=== PATIENT | female | born 1935 | race African-American/Black ===

== ENCOUNTER → 2020-04-16 | Outpatient (CLI) | payer OTHER ==
[~2020-04-16] MED LIST: NORCO 5-325 TA1 EACH PO
== END ==
LOC: CAT 10:24
PROVIDERS: ATTEND Internal Medicine
DX: K57.30 Diverticulosis of large intestine without perforation or abscess without bleeding (principal); I70.0 Atherosclerosis of aorta; R91.1 Solitary pulmonary nodule; J98.4 Other disorders of lung; N18.6 End stage renal disease; J44.9 Chronic obstructive pulmonary disease, unspecified

== ENCOUNTER 2020-05-13 16:33 | Emergency (ER) | payer OTHER, BC ==
[~2020-05-13] VITALS: Ht 152.4 cm; Wt 59.9 kg
[2020-05-13] MEDS ORDERED: LOSARTAN POTAS100 MG PO (16:54)
[2020-05-13] MEDS ORDERED: ELIQUIS2.5 MG PO (16:54)
[2020-05-13] MEDS ORDERED: ASA81BEC PO (16:55)
[2020-05-13] MEDS ORDERED: CARVEDILOL25 MG PO (16:55)
[2020-05-13] MEDS ORDERED: SENNA LAXATIVE8.6 MG PO (16:55)
[2020-05-13] MEDS ORDERED: RENA-VITE TABL0.8 MG PO (16:56)
[2020-05-13] MEDS ORDERED: ONDANSETRON HCL4 M2 PO (16:56)
[2020-05-13] MEDS ORDERED: CALCIUM ACETAT667 MG PO (16:57)
[2020-05-13] MEDS ORDERED: LEVOTHYROXINE150 MCG PO (16:57)
[2020-05-13] MEDS ORDERED: ANORO ELLIPTA1 EACH INH (16:57)
[2020-05-13] MEDS ORDERED: ASPERCREME 1141.7 GM TOP (16:59)
[2020-05-13] MEDS ORDERED: OXYBUTYNIN 5 MG5 M2 PO (17:00)
[2020-05-13] MEDS ORDERED: ROXICODONE5 M2 PO ×2 (17:00)
[2020-05-13] MEDS ORDERED: REGLAN 5 MG TAB5 MG PO (17:01)
[2020-05-13] MEDS ORDERED: SORBITOL1 ML PO (17:04)
[2020-05-13] MEDS ORDERED: COLACE100 MG PO (17:46)
[2020-05-13] MEDS ORDERED: ANUSOL-HC30 GM TOP (17:46)
[2020-05-13] MEDS ORDERED: ANUSOL-HC25 MG RECTAL (17:46)
[2020-05-13 18:11] VITALS: BP 135/81
== END 2020-05-13 18:53 | disposition home or self-care (01) ==
LOC: ER 16:33
DX: K59.00 Constipation, unspecified (principal); I10 Essential (primary) hypertension; K21.9 Gastro-esophageal reflux disease without esophagitis; E11.9 Type 2 diabetes mellitus without complications; Z90.710 Acquired absence of both cervix and uterus; Z79.899 Other long term (current) drug therapy; Z79.82 Long term (current) use of aspirin; Z88.8 Allergy status to other drugs, medicaments and biological substances; Z91.018 Allergy to other foods

== ENCOUNTER 2020-05-28 12:23 | Inpatient (IN) | payer OTHER, BC ==
[~2020-05-28] VITALS: Ht 165.1 cm; Wt 66.7 kg
--- NOTE | ~2020-05-28 | HC ---
[facility] [place] [address] CONSULTATION Name: MAITE BE Room #: 211-P ADM IN M.R.#: [id number] Admission: 05/28/20 Attend Phys: Marianne Doran Discharge: Date of : 33 Report #: [id number] THIS REPORT FOR: cc: Ed Castro MD, Christopher B. MD Al-Demetrio,Jermaine De MD ~ REASON FOR CONSULTATION: End-stage renal disease. REASON FOR PRESENTATION: Abnormal lower extremity duplex ultrasound. HISTORY OF PRESENT ILLNESS: The patient has end-stage renal disease, maintained on hemodialysis every Sunday, Sunday and Sunday. She is known to have colon cancer with colon resection. She is also known to have lymphoma. She presented from the wound clinic after they found that she had an abnormal duplex. She reported to the wound clinic that she has been having typical ischemic pain. She was admitted for further evaluation and management. I was consulted to manage her end-stage renal disease. PAST MEDICAL HISTORY: 1. Atrial fibrillation. 2. Coronary artery disease. 3. Peripheral vascular disease. 4. Non-Hodgkin's lymphoma. 5. End-stage renal disease, maintained on hemodialysis. 6. Lung nodules. 7. History of colon cancer post-resections. ALLERGIES: AMLODIPINE. HOME MEDICATIONS: 1. Eliquis. 2. Carvedilol. 3. Metoclopramide. 4. Losartan. 5. Levothyroxine. FAMILY HISTORY: Significant for hypertension and diabetes mellitus. SOCIAL HISTORY: She resides at the [facility]. No drug or alcohol abuse. REVIEW OF SYSTEMS: GENERAL: No fever or chills. CARDIOVASCULAR: No chest pain or palpitation. PULMONARY: No cough or hemoptysis. GASTROINTESTINAL: No nausea or vomiting. [facility] [address] [place] [address] CONSULTATION Name: MAITE BE Room #: 211-P [facility] IN M.R.#: [id number] Admission: 05/28/20 Attend Phys: Marianne Doran Discharge: Date of : 34 Report #: [id number] MUSCULOSKELETAL: As per the history of present illness. NEUROLOGICAL: No headache, no dizziness. PHYSICAL EXAMINATION: VITAL SIGNS: Temperature 36.4, pulse rate is 91, respiratory rate is 18, blood pressure is 137/56. HEAD AND NECK: No jugular venous distention, no bruit, no thyromegaly. CHEST: No crackles. CARDIOVASCULAR: No rub detected. ABDOMEN: Soft, nontender. LOWER EXTREMITIES: Chronic peripheral vascular disease changes. LABORATORY DATA: Hemoglobin is 8.8, platelet is 88,000. Sodium is 135, BUN is 20, creatinine is 4.6, magnesium is 1.7. ASSESSMENT, IMPRESSION AND PLAN: 1. End-stage renal disease. 2. Peripheral vascular disease. 3. Atrial fibrillation. 4. Hypertension. 5. Diabetes mellitus. 6. Hypothyroidism. 7. Arrangement for the patient will be made to have her dialysis done on Sunday. 8. Resume the patient's diabetic and thyroid medications. 9. Antibiotic for her potential lower extremity cellulitis. 10. Cultures were not obtained unfortunately. 11. Cardiac evaluation. 12. Interventional Radiology had evaluated the patient and they are considering an angiogram on Sunday. By: 1 7 Jermaine Nicolas MD /nt
[~2020-05-28 12:23] MED LIST changes: -AUGMENTIN 875-1 EACH PO; -CLOPIDOGREL75 MG PO; -HUMALOG100 UNIT/1 SUBQ; -LIDOPATCH1 EACH TRANSDERM; -LIPITOR40 MG PO; -PROTONIX 20 MG20 M1 PO
[2020-05-28 15:19] LABS: ABSOLUTE NEUTROPHILS 5.1 thou/uL (1.4-8.2); BASOPHILS 0.8 % (0.0-2.0); EOSINOPHILS 2.2 % (0.0-3.0); HEMATOCRIT 33.4 % (37.0-47.0); HEMOGLOBIN 10.2 gm/dL (12.0-15.0); LYMPHOCYTES 5.8 % (24.0-44.0); MCH 26.9 pg (26.0-34.0); MCHC 30.7 g/dL (28.0-37.0); MCV 87.4 fL (80.0-100.0); MONOCYTES 11.9 % (1.0-8.0); POLYS 79.3 % (36.0-66.0); RBC 3.82 mil/uL (4.20-5.00); WBC 6.4 thou/uL (4.0-11.0)
[2020-05-28 15:21] LABS: ALBUMIN 3.4 g/dL (3.4-5.0); CALCIUM 10.1 mg/dL (8.5-10.1); CREATININE 6.7 mg/dL (0.6-1.0); MAGNESIUM 2.1 mg/dL (1.8-2.4); POTASSIUM 4.2 mmol/L (3.5-5.1); TOTAL BILIRUBIN 0.4 mg/dL (0.2-1.0); TOTAL PROTEIN 7.4 g/dL (6.4-8.2); TROPONIN-I 0.06 ng/mL (<0.06)
[2020-05-28 15:24] LABS: PLATELET COUNT 98 thou/uL (150-400)
[2020-05-28 16:01] VITALS: BP 134/63
[2020-05-28 16:45] LABS: FOLIC ACID 53.3 ng/mL (8.6-58.9)
--- NOTE | 2020-05-28 18:11 | NUR ---
PT TO THE UNIT DIRECT ADMIT D/T PT LOWER EXTREMITY DOPPLER SHOWING BLOCK, PLAN IS TO DO A ANGIOGRAM SUNDAY, PT IS ALERT AND ABLE TO STATE WANTS AND NEEDS, PT STABLE AT THIS TIME. C/O PAIN IN RIGHT FOOT, PT HAS 3 PLUS EDEMA BILATERAL AND 3 SMALL WOUNDS ON LAST THREE TOES ON THAT RIGHT FOOT. PT HAD CENTRAL LINE PLACE. PT STATES SHE HAVING CHEST PAIN THAT MOVES TO LEFT ARM AND HOW IT LAST 10 SEC AND THAT IT HAS GONE ON FOR A FEW YEARS EKG DONE ALONG WITH A TROP LEVEL. PT VS STABLE AT THIS TIME AND IS SITTING IN BED EATING DINNER CALL LIGHT IN REACH.
--- NOTE | 2020-05-28 18:27 | NUR ---
PT BLOOD GLUCOSE 47, PT IS ALERT AND ABLE TO FOLLOW COMMANDS, APPLE JUCE, AND CRACKERS WITH PB GAVE TO PT, WILL RECHECK BLOOD GLUCOSE IN 30 AND CONTINUE TO MONITOR PT CLOSELY FOR HYPOGLYCEMIA
--- NOTE | 2020-05-28 19:14 | NUR ---
[id number] PLACED FOR VANCO AND PROCEDURES. PT HAS RT ARM GRAFT. PLEASE SEE NI FOR DETAILS.
[2020-05-28 20:15] VITALS: BP 111/51
[2020-05-29 00:01] VITALS: BP 116/53
[2020-05-29 04:45] VITALS: BP 129/66
--- NOTE | 2020-05-29 07:24 | NUR ---
ASSUMED CARE OF CHANGE OF SHIFT; AOX4 WITH C/O PAIN TO NECK AND HEAD; PRN PAIN MEDS ADMINISTERED; REPOSITIONED IN BED FOR COMFORT AND HEELS OFFLOADED; HEEL PROTECTOR TO RT FOOT; PATIENT REPORTS TACTILE STIMULATION EXACERBATES PAIN TO LEFT FOOT/LEG; SR ON THE MONITOR; PATIENT AMBULATED WELL WITH ASSIST TO TOILET/ANURIC WITH DIALYSIS SCHED M/W/F; PATIENT HAS PROCEDURE SCHEDULED FOR MAY 31; WILL CONTINUE TO MONITOR AND FOLLOW POC.
[2020-05-29 11:53] VITALS: BP 123/52
[2020-05-29 15:01] VITALS: BP 114/47
--- NOTE | 2020-05-29 15:33 | NUR ---
PT HAD DIALYSIS TODAY. VSS. PRN PAIN MED GIVEN WITH PARTIAL RELIEF. AFIB ON TELE. NO CONCERNS AT THIS TIME.
[2020-05-29 20:15] VITALS: BP 111/49
--- NOTE | 2020-05-30 02:31 | NUR ---
ASSUMED CARE AT CHANGE OF SHIFT; AOX4; CONTROLLED AFIB ON THE MONITOR; ASSIST TO TOILET WITH WALKER S/P SCHED SORBITOL/STEADY GAIT; PATIENT REPORTS COMPLETE ANURIA/ DIALYSIS SCHED M/W/F WITH RT GRAFT IN PLACE; NO C/O PAIN DURING SHIFT; VSS/ASSESSMENTS CHARTED; PLAN IS FOR SCHED ANGIOGRAM ON SUNDAY; WILL CONTINUE TO MONITOR AND FOLLOW POC.
[2020-05-30 04:45] VITALS: BP 137/56
[2020-05-30 05:18] LABS: HEMATOCRIT 28.3 % (37.0-47.0); HEMOGLOBIN 8.8 gm/dL (12.0-15.0); MCH 27.2 pg (26.0-34.0); MCHC 31.1 g/dL (28.0-37.0); MCV 87.7 fL (80.0-100.0); RBC 3.23 mil/uL (4.20-5.00); RDW 17.9 % (10.5-14.5); WBC 5.6 thou/uL (4.0-11.0)
[2020-05-30 05:20] LABS: CALCIUM 8.7 mg/dL (8.5-10.1); MAGNESIUM 1.7 mg/dL (1.8-2.4)
[2020-05-30 05:41] LABS: POTASSIUM 3.9 mmol/L (3.5-5.1)
[2020-05-30 05:43] LABS: CREATININE 4.6 mg/dL (0.6-1.0)
[2020-05-30 07:23] VITALS: BP 113/51
[2020-05-30 11:16] VITALS: BP 108/58
--- NOTE | 2020-05-30 12:07 | HC ---
[facility] [place] [address] CONSULTATION Name: MAITE BE Room #: 211-P ADM IN M.R.#: [id number] Admission: 05/28/20 Attend Phys: Marianne Doran Discharge: Date of : 34 Report #: [id number] THIS REPORT FOR: cc: Ed Castro MD, Christopher B. MD [place], Allen B. MD ~ DATE OF SERVICE: 05/29/2020 WOUND CARE CONSULTATION LOCATION: [facility]. REASON FOR CONSULTATION: Severe peripheral vascular disease of left lower extremity with rest pain, right heel diabetic ulcer. HISTORY OF PRESENT ILLNESS: The patient is an 85-year-old woman with atrial fibrillation, on Eliquis with end-stage renal disease, on dialysis who was admitted from the [facility]. The patient has had increasing pain in the left leg. She will sometimes dangle the leg for pain relief. QuantaFlo testing done in the Wound Care Clinic indicated the possibility of severe peripheral vascular disease of lower extremities. The patient was admitted to the hospital with plan for angiogram to be done on Sunday, 05/31. The patient complains of pain in the left foot, although there is no open wound. She has some pressure ulcer of the right heel. She undergoes hemodialysis. PAST MEDICAL HISTORY: Atrial fibrillation, constipation, end stage renal disease with hemodialysis. LABORATORY DATA: Creatinine 6.7. PHYSICAL EXAMINATION: GENERAL: Shows a thin elderly woman who is alert, pleasant, conversant. HEENT: Mucous membranes are moist. NECK: Supple. LUNGS: Respirations unlabored. ABDOMEN: Soft. EXTREMITIES: Examination of the lower extremities shows some slight redness of the right heel with slight tenderness, slight skin breakdown. Examination of the left lower extremity shows tenderness to touch of the foot and toes. No open wounds are seen. This is interpreted as ischemic rest pain. IMPRESSION: 1. Atrial fibrillation, on Eliquis. 2. Debility and immobility. 3. End-stage renal disease, on hemodialysis. [facility] [address] [place] [address] CONSULTATION Name: MAITE BE ISABEL Room #: [address] [place] [address] IN M.R.#: [id number] Admission: 05/28/20 Attend Phys: Marianne Doran Discharge: Date of : 34 Report #: [id number] 4. Severe peripheral vascular disease of lower extremities with rest pain and sensitivity of left foot. PLAN: The patient will stay on bed rest, he may dangle the left leg. This gives her relief. She is scheduled for angiogram to be done on Sunday. There is evidence of severe peripheral vascular disease. She will wear a heel protector on the right heel. Wound Care team will follow. <ELECTRONICALLY SIGNED> By: Justo Renae MD 05/30/20 1207 1334 1346 Justo Renae MD /nt
[2020-05-30 15:12] VITALS: BP 113/62
--- NOTE | 2020-05-30 17:49 | NUR ---
ASSESSMENT CHARTED. PT ALERT AND ORIENTED. PLEASANT AND COOPERATIVE WITH CARES. VSS. PRN PAIN MED GIVEN WITH PARTIAL RELIEF. NPO AFTER MIDNIGHT FOR POSSIBLE ANGIOGRAM IN AM.
[2020-05-30 20:14] VITALS: BP 136/69
[2020-05-31] VITALS (12 sets, daily range): BP systolic 107–163; BP diastolic 53–86
[2020-05-31 02:05] LABS: HEP B SURFACE Ab(ANTI-HBS Reactive (()); HEPATITIS B SURFACE AG Negative (Negative)
--- NOTE | 2020-05-31 03:18 | NUR ---
SLEPT MOST OF SHIFT. ASSISTED UP TO BEDSIDE COMODE AND HAD MODERATE BOWEL MOVEMENT. WORKING ON GOALS AND PLAN OF CARE FOR NOC. NPO PAST MIDNIGHT FOR AM PROCEDURE. CONTINUE TO ASSES CLOSELY. PAIN MEDICATION GIVEN NEEDED.
--- NOTE | 2020-05-31 07:35 | EKG ---
[place] [address] [facility] [place] [address] ELECTROCARDIOGRAM REPORT Name: MAITE BE Room #: 211-P ADM IN M.R.#: [id number] Admission: 05/28/20 Attend Phys: Marianne Doran Discharge: Date of : 34 Report #: [id number] [facility] Test Date: 2020-05-28 Test Time: 15:19:13 Pat Name: MAITE BE Department: Room: Gender: F Recordings Librarian: JUANI : 1935 Requested By: Messi Roman Order Number: [id number] MD: Giorgio Tim Measurements Intervals [place] Rate: 79 P: NE: QRS: -51 QRSD: 103 T: 37 QT: 413 QTc: 474 Interpretive Statements Atrial fibrillation LAD, consider LAFB or inferior infarct Baseline wander in lead(s) V4 Compared to ECG 06/05/2010 13:26:12 Sinus rhythm no longer present Left-axis deviation no longer present Poor R-wave progression no longer present Electronically Signed On 05-31-2020 7:35:40 BROADCAST TRANSMITTER OPERATOR by Giorgio Tim [email or web address] <ELECTRONICALLY SIGNED> By: Giorgio Tim MD, FACC 05/31/20 0735 1519 1519 Giorgio Tim MD, [facility] /EPI
[2020-05-31 18:13] LABS: CALCIUM 7.7 mg/dL (8.5-10.1); POTASSIUM 3.8 mmol/L (3.5-5.1)
[2020-05-31 18:20] LABS: CREATININE 2.7 mg/dL (0.6-1.0)
--- NOTE | 2020-05-31 18:22 | NUR ---
ASSUMED CARE OF PT AT SHIFT CHANGE. ASSESSMENTS CHARTED. MEDS GIVEN PER MAY. PT A&OX4, C/O OF PAIN BUT DECLINED PAIN MEDS. DIALYSIS COMPLETE, TOOK OFF 1.5L. AORTAGRAM AND HEART CATH COMPLETE. BEDREST COMPLETE AT 1900. R GROIN SITE CDI, NO BRUISNG OR HEMATOMA. POSSIBLE DC TOMORROW. WILL CONTINUE TO MONITOR FOR CHANGES AND FOLLOW POC.
[2020-06-01 04:40] VITALS: BP 121/62
--- NOTE | 2020-06-01 05:55 | NUR ---
ASSUMED CARE AT CHANGE OF SHIFT; AOX4; AFIB/PVC ON THE MONITOR; VSS/ ASSESSMENTS CHARTED; C/O PAIN TO NECK AND TOES MANAGED WITH PRN MEDICATIONS/ HEELS OFFLOADED WITH HEEL PROTECTORS IN PLACE PER PROVIDER ORDER; REPOSITION PER PATIENT REQUEST; RT GROIN SITE WITH MYNX DRESSING IN PLACE C/D/I/NO HEMATOMA; WILL CONTINUE TO MONITOR AND FOLLOW POC.
[2020-06-01 07:13] LABS: HEMATOCRIT 28.6 % (37.0-47.0); HEMOGLOBIN 8.8 gm/dL (12.0-15.0); MCH 27.1 pg (26.0-34.0); MCHC 30.7 g/dL (28.0-37.0); MCV 88.1 fL (80.0-100.0); RBC 3.25 mil/uL (4.20-5.00); RDW 17.8 % (10.5-14.5)
--- NOTE | 2020-06-01 07:21 | EKG ---
[facility] [place] [address] ELECTROCARDIOGRAM REPORT Name: MAITE BE Room #: 211- ADM IN M.R.#: [id number] Admission: 05/28/20 Attend Phys: Messi Roman MD Discharge: Date of : 34 Report #: [id number] [facility] Test Date: 2020-06-01 Test Time: 06:59:33 Pat Name: MAITE BE Department: Room: 211 Gender: F Mandrel Cleaner: JUANI : 1935 Requested By: Panchito Hooper Order Number: [id number] MD: Taz Swartz Measurements Intervals [place] Rate: 100 P: TN: QRS: -58 QRSD: 94 T: 67 QT: 389 QTc: 502 Interpretive Statements Atrial fibrillation Left anterior fascicular block Poor R wave progression Prolonged QT interval Baseline wander in lead(s) V3,V5 Compared to ECG 05/28/2020 15:19:13 No significant changes found Electronically Signed On 06-01-2020 7:20:54 EVENT EXECUTIVE by Taz Swartz [email or web address] <ELECTRONICALLY SIGNED> By: Taz Swartz MD, [facility] 06/01/20 0720 0659 0659 Taz Swartz MD, [facility] /EPI
[2020-06-01 07:24] LABS: ALBUMIN 2.8 g/dL (3.4-5.0); CALCIUM 8.6 mg/dL (8.5-10.1); POTASSIUM 4.5 mmol/L (3.5-5.1); TOTAL BILIRUBIN 0.4 mg/dL (0.2-1.0); TOTAL PROTEIN 6.5 g/dL (6.4-8.2)
[2020-06-01 07:30] LABS: CREATININE 3.9 mg/dL (0.6-1.0)
[2020-06-01 08:30] VITALS: BP 111/56
--- NOTE | 2020-06-01 09:33 | NUR ---
Met with patient she admits from [facility]. Patient has been at [facility] for skilled care with goal to return home. Patient reports she uses a CPAP machine at [facility]. Patient placed on oxygen this am she reports she does not use at [facility]. Updated patient and [facility] tenative plan for dc today. Updated RN need COVID prior to return. Sp with Yojana at [facility]. Sp with son to alert of tenative dc today. All inagreement.
--- NOTE | 2020-06-01 09:55 | NUR ---
FAXED CLINICAL UPDATES AND THERAPY NOTES TO [facility]. WILL CONFIRM WITH KEON/INTAKE THAT THEY RECEIVED. [facility] P [phone]; FAX [phone]
--- NOTE | 2020-06-01 10:11 | 2DMMODE ---
[facility] [place] [address] 2 D/M-MODE ECHOCARDIOGRAM Name: MAITE BE Room #: 211-P ADM IN M.R.#: [id number] Admission: 05/28/20 Attend Phys: Messi Roman MD Discharge: Date of : 34 Report #: [id number] THIS REPORT FOR: cc: Ed Castro MD, Christopher B. MD Park, Jin S. MD ~ APPROVED REPORT Study performed: 06/01/2020 07:57:46 EXAM: Comprehensive 2D, Doppler, and color-flow Echocardiogram Patient Location: Bedside Room #: 211 Status: routine BSA: 1.74 HR: 98 bpm BP: 121/62 mmHg Rhythm: Atrial Fibrillation Other Information Study Quality: Good Indications Diabetes Atrial Fibrillation CAD Chest Pain 2D Dimensions RVDd: 36.02 mm IVSd: 16.59 (7-11mm) LVOT Diam: 17.84 (18-24mm) LVDd: 32.28 mm PWd: 19.20 (7-11mm) Ascending Ao: 33.22 (22-36mm) LVDs: 22.95 (25-40mm) Left Atrium: 40.27 (27-40mm) Aortic Root: 31.48 mm IVC: 20.00 mm Volumes Left Atrial Volume (Systole) Single Plane 4CH: 50.33 mL Single Plane 2CH: 57.49 mL LA ESV Index: 35.00 mL/m2 Mitral Valve MVA Planimetry: 1541.06 mm2 [facility] [address] [place] [address] 2 D/M-MODE ECHOCARDIOGRAM Name: MAITE BE Room #: [address] [place] [address] IN M.Billy.#: [id number] Admission: 05/28/20 Attend Phys: Messi Roman MD Discharge: Date of : 34 Report #: [id number] Pulmonary Valve PV Peak Vaughn.: 0.86 m/s PV Peak Gr.: 2.96 mmHg Tricuspid Valve TR Peak Vaughn.: 3.67 m/s TR Peak Gr.: 53.94 mmHg PA Pressure: 52.00 mmHg Left Ventricle The left ventricle is normal size. Moderate concentric left ventricular hypertrophy. The left ventricular systolic function is normal. The left ventricular ejection fraction is within the normal range. LVEF is 55%. This study is not technically sufficient to allow evaluation of the LV diastolic function due to atrial fibrillation. Right Ventricle The right ventricle is normal size. The right ventricular systolic function is normal. Atria Left atrium is dilated. Right atrium is dilated. Aortic Valve The aortic valve is normal in structure. The Aortic valve is sclerotic. Trace aortic regurgitation. There is no aortic valvular stenosis. Mitral Valve The mitral valve is normal in structure. Mild mitral regurgitation. No evidence of mitral valve stenosis. Tricuspid Valve The tricuspid valve is normal in structure. There is moderate tricuspid regurgitation. Estimated PAP 52 mmHg. There is moderate pulmonary hypertension. Pulmonic Valve The pulmonary valve is normal in structure. There is no pulmonic valvular regurgitation. Great Vessels The aortic root is normal in size. IVC is dilated and collapses <50% with inspiration. [facility] [address] [place] [address] 2 D/M-MODE ECHOCARDIOGRAM Name: MAITE BE Room #: 211-P ADM IN M.R.#: [id number] Admission: 05/28/20 Attend Phys: Messi Roman MD Discharge: Date of : 34 Report #: [id number] Pericardium There is no pericardial effusion. <Conclusion> The left ventricle is normal size. Moderate concentric left ventricular hypertrophy. The left ventricular systolic function is normal. The right ventricle is normal size. Left atrium is dilated. The Aortic valve is sclerotic. Mild mitral regurgitation. There is moderate tricuspid regurgitation. Estimated PAP 52 mmHg. <ELECTRONICALLY SIGNED> By: Panchito Hooper MD 06/01/20 1011 1011 101 Panchito Hooper MD /INF
[2020-06-01 11:15] VITALS: BP 100/56
--- NOTE | 2020-06-01 11:26 | CATHLAB ---
[facility] [place] [address] INVASIVE PROCEDURE REPORT Name: MAITE BE Room #: 211-P ADM IN M.R.#: [id number] Admission: 05/28/20 Attend Phys: Messi Roman MD Discharge: Date of : 34 Report #: [id number] THIS REPORT FOR: cc: Ed Castro MD, Christopher B. MD Park, Jin S. MD ~ APPROVED REPORT Study performed: 05/31/2020 12:21:23 Patient Details Patient Status: In-Patient Room #: The patient is a 85 year-old female Event Personnel Panchito Hooper Department Store General Manager, Rajat Cameron RN RN, Katy Carlisle Dotson, Jordan RTR Monitor Procedures Performed Art Access - R femoral artery* Left Heart Cath w/or w/o Coronaries [id number] [facility] [address] w/wo Plasty Single CIRC [id number] Indication Dyspnea, Unstable angina , Chest pain Risk Factors Peripheral Vascular Disease, HypercholesterolemiaPhysical Activity, Coronary Artery DiseaseHypertensionRenal Failure, Diabetes Procedure Narrative The Right Groin^ was infiltrated with 1% Lidocaine subcutaneous anesthesia. A PINNACLE 4FR Sheath #[id number] sheath was inserted into the RFA^. Coronary angiography was performed using coronary diagnostic catheters. The right coronary system was accessed and visualized with a JR4 catheter. The left coronary system was accessed and visualized with a JL4 catheter. The patient tolerated the procedure well and there were no complications associated with the procedure. There was no hematoma. Intraoperative Conscious Sedation Sedation start time: 1230 Case end Time: 1335 Fentanyl 150 mcg Versed 1 mg [facility] [address] [place] [address] INVASIVE PROCEDURE REPORT Name: MAITE BE Room #: 211-P [facility] IN [place].#: [id number] Admission: 05/28/20 Attend Phys: Messi Roman MD Discharge: Date of : 34 Report #: [id number] Fluoro Time: 11.21 minutes Dose: DAP 6997.85 cGycm2 759 mGy Contrast Type and Amount: Visipaque 175 Coronary Angiography The patient's coronary anatomy is co- dominant. Diagnostic Cath Left Main The left main artery is a large-caliber vessel, patent with no flow-limiting lesions. LAD The LAD is a moderate to large caliber vessel, calcified. It traverses the anterior wall and wraps around the apex. The proximal segment is tortuous and has a moderate lesion. Diagonal 1 This is a moderate-sized caliber vessel, patent with no flow-limiting lesions. Circumflex The left circumflex artery is a codominant vessel with a moderate stenosis in the proximal segment. There is a severe, discrete stenosis in the midsegment, 99%. OM1 This vessel has a high takeoff from the left circumflex artery and has a moderate stenosis proximally, 50%. OM2 This is a moderate size caliber vessel, originating from the left circumflex segment after the severe occlusion in the circumflex. This vessel is patent with no flow-limiting lesions. Right Coronary There is mild diffuse disease in the proximal segment. R PDA There is a small to moderate-sized caliber vessel, with no flow-limiting lesions. Left Ventriculography Left Ventriculography was not performed. Ejection Fraction was 55-60% based off patient's Echocardiogram. An LVEDP was measured and there is no gradient across the outflow tract. Hemodynamics The aortic pressure is 124/54 mmHg with a mean of 84 mmHg. The left ventricular pressure is 133/8 mmHg with a mean of mmHg. The left ventricular end diastolic pressure is 14 mmHg. PCI Technique Lesion Percutaneous coronary intervention was performed on the mid circumflex artery segment. The lesion stenosis prior to intervention was 99% with KIMBERLY 3 flow. A VISTA 6FR XB 3.5 #[id number] Guide Catheter was used to engage the CIRC ostium. A Luge Wire .014 x 182CM #[id number] Interventional Guidewire was used to cross the lesion. [facility] [address] [place] [address] INVASIVE PROCEDURE REPORT Name: MAITE BE Room #: 211-P [facility] IN M.R.#: [id number] Admission: 05/28/20 Attend Phys: Messi Roman MD Discharge: Date of : 34 Report #: [id number] BALLOON DILATION A Balloon catheter TREK RX 2.25 X 12 #[id number] was inserted and inflated up to 14.00atm for 24seconds. Additional Inflation: 18.00atm for 20seconds. STENT DEPLOYMENT A stent RESOLUTE INGA RX 3.0 X 15 #[id number] was inserted and inflated up to 16.00atm for 16seconds. POST STENT DEPLOYMENT BALLOON DILATION A Balloon catheter TREK NC RX 3.25 X 12 #[id number] was inserted and inflated up to 18.00atm for 18seconds. Additional Inflation: 18.00atm for 10seconds. Final angiography reveals 0 % stenosis with KIMBERLY 3 flow. PCI Technique Lesion 2 Percutaneous Coronary Intervention was performed on the Unspecified. Conclusion 1. Successful insertion of a drug-eluting stent into the severe stenosis in the midsegment of the codominant left circumflex artery. 2. There is moderate disease in the proximal LAD, left circumflex and OM1. 3. There is normal LV systolic function. 4. Recommend antiplatelet therapy and aggressive risk factor management. <ELECTRONICALLY SIGNED> By: Panchito Hooper MD 06/01/20 1126 1126 1126 Panchito Hooper MD /INF
[2020-06-01] MEDS ORDERED: CLOPIDOGREL75 MG PO ×2 (12:42)
[2020-06-01] MEDS ORDERED: LIDOPATCH1 EACH TRANSDERM ×2 (13:00)
[2020-06-01] MEDS ORDERED: LIPITOR40 MG PO ×2 (13:00)
[2020-06-01] MEDS ORDERED: PROTONIX 20 MG20 M1 PO ×2 (13:00)
[2020-06-01] MEDS ORDERED: HUMALOG100 UNIT/1 SUBQ ×2 (14:16)
[2020-06-01] MEDS ORDERED: AUGMENTIN 875-1 EACH PO ×2 (14:19)
--- NOTE | 2020-06-01 15:03 | NUR ---
Patient stable to dc to [facility]. Faxed orders, chart copied. van for [id number]. Notfied son. Patient and Rn aware of discharge. RN to call report no further needs.
[2020-06-01 16:00] VITALS: BP 112/58
[2020-06-02] MEDS ORDERED: AUGMENTIN 875-1 EACH PO (13:57)
== END 2020-06-01 16:40 | DRG 270 ==
LOC: 2N 12:23
PROVIDERS: Hospitalist; Internal Medicine Cardiovascular Disease; Nurse Practitioner; ADMIT Internal Medicine; ATTEND Internal Medicine
PROC: 02HV33Z Insertion of Infusion Device into Superior Vena Cava, Percutaneous Approach (ICD-10-PCS; principal; 2020-05-28)
PROC: 5A1D70Z Performance of Urinary Filtration, Intermittent, Less than 6 Hours Per Day (ICD-10-PCS; 2020-05-29)
PROC: 04CN3ZZ Extirpation of Matter from Left Popliteal Artery, Percutaneous Approach (ICD-10-PCS; 2020-05-31)
PROC: 047U34Z Dilation of Left Peroneal Artery with Drug-eluting Intraluminal Device, Percutaneous Approach (ICD-10-PCS; 2020-05-31)
PROC: 047N3DZ Dilation of Left Popliteal Artery with Intraluminal Device, Percutaneous Approach (ICD-10-PCS; 2020-05-31)
PROC: B41D1ZZ Fluoroscopy of Aorta and Bilateral Lower Extremity Arteries using Low Osmolar Contrast (ICD-10-PCS; 2020-05-31)
PROC: 4A023N7 Measurement of Cardiac Sampling and Pressure, Left Heart, Percutaneous Approach (ICD-10-PCS; 2020-05-31)
PROC: 047L3DZ Dilation of Left Femoral Artery with Intraluminal Device, Percutaneous Approach (ICD-10-PCS; 2020-05-31)
PROC: 04CU3ZZ Extirpation of Matter from Left Peroneal Artery, Percutaneous Approach (ICD-10-PCS; 2020-05-31)
PROC: 5A1D70Z Performance of Urinary Filtration, Intermittent, Less than 6 Hours Per Day (ICD-10-PCS; 2020-05-31)
PROC: B211YZZ Fluoroscopy of Multiple Coronary Arteries using Other Contrast (ICD-10-PCS; 2020-05-31)
PROC: 047N34Z Dilation of Left Popliteal Artery with Drug-eluting Intraluminal Device, Percutaneous Approach (ICD-10-PCS; 2020-05-31)
PROC: 027034Z Dilation of Coronary Artery, One Artery with Drug-eluting Intraluminal Device, Percutaneous Approach (ICD-10-PCS; 2020-05-31)
PROC: 04CL3ZZ Extirpation of Matter from Left Femoral Artery, Percutaneous Approach (ICD-10-PCS; 2020-05-31)
DX: E11.51 Type 2 diabetes mellitus with diabetic peripheral angiopathy without gangrene (principal); N18.6 End stage renal disease; I25.110 Atherosclerotic heart disease of native coronary artery with unstable angina pectoris; I48.20 Chronic atrial fibrillation, unspecified; I13.2 Hypertensive heart and chronic kidney disease with heart failure and with stage 5 chronic kidney disease, or end stage renal disease; L03.032 Cellulitis of left toe; E78.5 Hyperlipidemia, unspecified; J44.9 Chronic obstructive pulmonary disease, unspecified; I50.9 Heart failure, unspecified; K21.9 Gastro-esophageal reflux disease without esophagitis; K57.90 Diverticulosis of intestine, part unspecified, without perforation or abscess without bleeding; E03.9 Hypothyroidism, unspecified; R91.1 Solitary pulmonary nodule; E11.22 Type 2 diabetes mellitus with diabetic chronic kidney disease; K59.00 Constipation, unspecified; R53.81 Other malaise; L97.529 Non-pressure chronic ulcer of other part of left foot with unspecified severity; L89.619 Pressure ulcer of right heel, unspecified stage; D69.6 Thrombocytopenia, unspecified; D64.9 Anemia, unspecified; E11.43 Type 2 diabetes mellitus with diabetic autonomic (poly)neuropathy; K31.84 Gastroparesis; Z85.038 Personal history of other malignant neoplasm of large intestine; Z88.8 Allergy status to other drugs, medicaments and biological substances; Z88.6 Allergy status to analgesic agent; Z87.891 Personal history of nicotine dependence; Z85.71 Personal history of Hodgkin lymphoma; Z90.710 Acquired absence of both cervix and uterus; Z82.49 Family history of ischemic heart disease and other diseases of the circulatory system; Z83.3 Family history of diabetes mellitus; Z79.82 Long term (current) use of aspirin; Z79.899 Other long term (current) drug therapy
CPT/HCPCS: 10081; 10797; 32100

== ENCOUNTER → 2020-05-28 | Outpatient (CLI) | payer OTHER, BC ==
[~2020-05-28] MED LIST changes: +ANORO ELLIPTA1 EACH INH; +ANUSOL-HC25 MG RECTAL; +ANUSOL-HC30 GM TOP; +ASA81BEC PO; +ASPERCREME 1141.7 GM TOP; +AUGMENTIN 875-1 EACH PO; +CALCIUM ACETAT667 MG PO; +CARVEDILOL25 MG PO; +CLOPIDOGREL75 MG PO; +COLACE100 MG PO; +ELIQUIS2.5 MG PO; +HUMALOG100 UNIT/1 SUBQ; +LEVOTHYROXINE150 MCG PO; +LIDOPATCH1 EACH TRANSDERM; +LIPITOR40 MG PO; +LOSARTAN POTAS100 MG PO; +ONDANSETRON HCL4 M2 PO; +OXYBUTYNIN 5 MG5 M2 PO; +PROTONIX 20 MG20 M1 PO; +REGLAN 5 MG TAB5 MG PO; +RENA-VITE TABL0.8 MG PO; +ROXICODONE5 M2 PO; +SENNA LAXATIVE8.6 MG PO; +SORBITOL1 ML PO
== END ==
LOC: SJCVCIMAG 06:31
PROVIDERS: ATTEND Internal Medicine
DX: I70.203 Unspecified atherosclerosis of native arteries of extremities, bilateral legs (principal); M79.672 Pain in left foot; I48.91 Unspecified atrial fibrillation; E11.22 Type 2 diabetes mellitus with diabetic chronic kidney disease; I12.0 Hypertensive chronic kidney disease with stage 5 chronic kidney disease or end stage renal disease; N18.6 End stage renal disease; D64.9 Anemia, unspecified; J44.9 Chronic obstructive pulmonary disease, unspecified; I25.10 Atherosclerotic heart disease of native coronary artery without angina pectoris; K21.9 Gastro-esophageal reflux disease without esophagitis; M10.9 Gout, unspecified; I25.2 Old myocardial infarction; M19.90 Unspecified osteoarthritis, unspecified site; Z99.2 Dependence on renal dialysis; Z95.1 Presence of aortocoronary bypass graft; Z88.8 Allergy status to other drugs, medicaments and biological substances; Z79.82 Long term (current) use of aspirin; Z79.899 Other long term (current) drug therapy; Z87.891 Personal history of nicotine dependence

== ENCOUNTER 2020-06-02 12:34 | Emergency (ER) | payer OTHER, BC ==
[~2020-06-02] VITALS: Ht 152.4 cm; Wt 62.1 kg
[~2020-06-02 12:34] MED LIST changes: +AUGMENTIN 875-1 EACH PO; +CLOPIDOGREL75 MG PO; +HUMALOG100 UNIT/1 SUBQ; +LIDOPATCH1 EACH TRANSDERM; +LIPITOR40 MG PO; +PROTONIX 20 MG20 M1 PO
[2020-06-02 13:09] LABS: BASOPHILS 0.4 % (0.0-2.0); EOSINOPHILS 1.7 % (0.0-3.0); HEMATOCRIT 28.4 % (37.0-47.0); HEMOGLOBIN 8.8 gm/dL (12.0-15.0); LYMPHOCYTES 2.6 % (24.0-44.0); MCH 27.1 pg (26.0-34.0); MCV 87.5 fL (80.0-100.0); MONOCYTES 10.6 % (1.0-8.0); PLATELET COUNT 135 thou/uL (150-400); POLYS 84.7 % (36.0-66.0); RBC 3.24 mil/uL (4.20-5.00); RDW 17.5 % (10.5-14.5); WBC 8.3 thou/uL (4.0-11.0)
[2020-06-02 13:30] LABS: ALBUMIN 2.8 g/dL (3.4-5.0); CALCIUM 9.3 mg/dL (8.5-10.1); POTASSIUM 5.7 mmol/L (3.5-5.1); TOTAL BILIRUBIN 0.6 mg/dL (0.2-1.0); TOTAL PROTEIN 7.3 g/dL (6.4-8.2)
[2020-06-02 13:32] LABS: CREATININE 5.2 mg/dL (0.6-1.0)
[2020-06-02] MEDS ORDERED: AUGMENTIN 875-1 EACH PO (13:57)
[2020-06-02 19:29] VITALS: BP 107/54
--- NOTE | 2020-06-03 06:55 | EKG ---
[facility] [place] [address] ELECTROCARDIOGRAM REPORT Name: MAITE BE [facility] [id number] Admission: 06/02/20 Attend Phys: Discharge: 06/02/20 Date of : 34 Report #: [id number] [facility] ED Test Date: 2020-06-02 Test Time: 12:42:21 Pat Name: MAITE BE Department: Room: Gender: F Supervisor Cook House: CHUNG : 1935 Requested By: Patel Alaniz Order Number: [id number] MD: Giorgio Tim Measurements Intervals [place] Rate: 102 P: [place]: QRS: -52 QRSD: 94 T: 73 QT: 364 QTc: 475 Interpretive Statements Atrial fibrillation Ventricular premature complex Left anterior fascicular block Consider anterior infarct Compared to ECG 06/01/2020 06:59:33 Ventricular premature complex(es) now present Myocardial infarct finding now present Poor R-wave progression no longer present Prolonged QT interval no longer present Electronically Signed On 06-03-2020 6:55:31 WAITER/WAITRESS CAPTAIN by Giorgio Tim [email or web address] <ELECTRONICALLY SIGNED> By: Giorgio Tim MD, FACC 06/03/20 0655 1242 1242 Giorgio Tim MD, FAC /EPI
== END 2020-06-02 19:37 | disposition home or self-care (01) ==
LOC: ER 12:34
PROVIDERS: Emergency Medicine
DX: G25.3 Myoclonus (principal); L03.116 Cellulitis of left lower limb; I11.0 Hypertensive heart disease with heart failure; I50.9 Heart failure, unspecified; I48.91 Unspecified atrial fibrillation; E11.9 Type 2 diabetes mellitus without complications; K21.9 Gastro-esophageal reflux disease without esophagitis; Z90.710 Acquired absence of both cervix and uterus; Z79.899 Other long term (current) drug therapy; Z88.6 Allergy status to analgesic agent; Z88.8 Allergy status to other drugs, medicaments and biological substances

== ENCOUNTER 2020-06-07 18:49 | Emergency (ER) | payer OTHER, BC | END 2020-06-07 18:50 | LOC: ER 18:49 | DX: I46.9 Cardiac arrest, cause unspecified (principal); E11.9 Type 2 diabetes mellitus without complications; K21.9 Gastro-esophageal reflux disease without esophagitis; I48.91 Unspecified atrial fibrillation; I11.0 Hypertensive heart disease with heart failure; I50.9 Heart failure, unspecified; Z90.710 Acquired absence of both cervix and uterus; Z79.899 Other long term (current) drug therapy; Z79.01 Long term (current) use of anticoagulants; Z79.4 Long term (current) use of insulin; Z88.6 Allergy status to analgesic agent; Z88.8 Allergy status to other drugs, medicaments and biological substances ==